=== PATIENT | female | born 1960 | race Caucasian/White ===

== ENCOUNTER 2017-04-16 06:31 | Day surgery (SDC) | payer BC ==
[~2017-04-16] VITALS: Ht 165.1 cm; Wt 77.1 kg
[~2017-04-16 06:31] MED LIST: ALAVERT10 M1 PO; ALIGN PO; ALL DAY ALLERGY10 MG PO; AMLODIPINE BESY10 MG PO; ASPIRIN81 M2 PO; ATENOLOL25 MG PO; BENADRYL25 MG PO; BENAZEPRIL HCL20 MG PO; Benadryl PO; CALCITRIOL0.25 MCG PO; Claritin,Alavart PO; Flonase BOTH NARES; L-LYSINE500 M1 PO; Lotensin PO; Motrin PO; Norvasc PO; PHAZYME ULTRA180 MG PO; Percocet 5/325,Endoc PO; THERAGRAN1 TABLET PO; Tenormin PO; Zinc Gluconate PO
== END 2017-04-16 12:35 | disposition home or self-care (01) ==
LOC: CATH 06:31
DX: I25.10 Atherosclerotic heart disease of native coronary artery without angina pectoris (principal); I47.2 Ventricular tachycardia; I34.9 Nonrheumatic mitral valve disorder, unspecified; I10 Essential (primary) hypertension; E78.5 Hyperlipidemia, unspecified; K21.9 Gastro-esophageal reflux disease without esophagitis
CPT/HCPCS: C1769; C1887; J1644; J2250; J3010